=== PATIENT | female | born 1955 | race Asian ===

== ENCOUNTER 2019-02-28 06:45 | Day surgery (SDC) | payer OTHER ==
[~2019-02-28] VITALS: Ht 162.6 cm; Wt 61.7 kg
[2019-02-28 07:34] VITALS: BP 131/84
[2019-02-28 13:35] VITALS: BP 96/63
== END 2019-02-28 09:55 | disposition home or self-care (01) ==
LOC: DS 06:45 → OR 09:30 → DS 09:55 → OR 10:45 → GI 11:00
DX: Z12.11 Encounter for screening for malignant neoplasm of colon (principal); K64.8 Other hemorrhoids; E11.9 Type 2 diabetes mellitus without complications; Z86.010 Personal history of colon polyps; Z98.890 Other specified postprocedural states; Z85.3 Personal history of malignant neoplasm of breast; Z79.84 Long term (current) use of oral hypoglycemic drugs; Z79.899 Other long term (current) drug therapy; Z80.0 Family history of malignant neoplasm of digestive organs
CPT/HCPCS: 45378; J1200; J1610; J2250; J2310; J3010; J3490